=== PATIENT | female | born 1970 | race African-American/Black ===

== ENCOUNTER 2019-05-17 15:37 | Emergency (ER) | payer BC ==
[~2019-05-17] VITALS: Ht 167.6 cm; Wt 117.9 kg
[2019-05-17] MEDS ORDERED: NEURONTIN 300M300 M2 PO (15:51)
[2019-05-17] MEDS ORDERED: LIPITOR10 MG PO (15:51)
[2019-05-17] MEDS ORDERED: NORVASC10 MG PO (15:51)
[2019-05-17] MEDS ORDERED: OMEPRAZOLE40 MG PO (15:51)
[2019-05-17] MEDS ORDERED: METFORMIN HCL500 M3 PO (15:52)
[2019-05-17] MEDS ORDERED: PROAIR HFA8.5 GM INH (15:52)
[2019-05-17] MEDS ORDERED: ALLER-TEC D 5-1 EACH PO (15:53)
[2019-05-17] MEDS ORDERED: IBUPROFEN 800800 M1 PO (15:53)
[2019-05-17] MEDS ORDERED: ALLER-FLO15.8 ML NASAL (15:53)
[2019-05-17 16:31] LABS: ABSOLUTE BASOPHILS 0.1 thou/uL (0.0-0.2); ABSOLUTE EOSINOPHILS 0.2 thou/uL (0.0-0.7); ABSOLUTE MONOCYTES 0.8 thou/uL (0.0-1.2); ABSOLUTE NEUTROPHILS 6.1 thou/uL (1.6-8.1); BASOPHILS 1.1 %; EOSINOPHILS 1.8 %; HEMATOCRIT 41.6 % (37.0-47.0); HEMOGLOBIN 14.3 gm/dL (12.0-15.0); LYMPHOCYTES 21.6 %; MCH 29.6 pg (26.0-34.0); MCHC 34.3 g/dL (28.0-37.0); MCV 86.5 fL (80.0-100.0); MONOCYTES 8.6 %; MPV 7.8 fl. (7.2-11.1); NUCLEATED RBCS 0 /100WBC; PLATELET COUNT* 357 thou/uL (150-400); POLYS 66.9 %; RBC 4.81 mil/uL (4.20-5.00); RDW-CV 13.7 % (10.5-14.5); WBC 9.1 thou/uL (4.0-11.0)
[2019-05-17 16:43] LABS: CALCIUM 8.5 mg/dL (8.5-10.1); CREATININE 0.9 mg/dL (0.6-1.3); POTASSIUM 3.5 mmol/L (3.5-5.1)
[2019-05-17 16:48] LABS: ALBUMIN 3.5 g/dL (3.4-5.0); TOTAL BILIRUBIN 0.6 mg/dL (<0.1-1.0); TOTAL PROTEIN 7.3 g/dL (6.4-8.2)
[2019-05-17] MEDS ORDERED: NORCO 5-325 TA1 EAC1 PO (17:08)
[2019-05-17] MEDS ORDERED: PREDNISONE 20 M20 M1 PO (17:08)
[2019-05-17 17:22] VITALS: BP 140/69
[2019-05-17 17:41] LABS: ESR (SEDRATE) 5 mm/hr (0-30)
== END 2019-05-17 17:25 | disposition home or self-care (01) ==
LOC: M.ERS 15:37
PROVIDERS: Family Medicine
DX: R51 Headache (principal); I10 Essential (primary) hypertension; E78.00 Pure hypercholesterolemia, unspecified; J45.909 Unspecified asthma, uncomplicated; Z88.5 Allergy status to narcotic agent; Z90.710 Acquired absence of both cervix and uterus; Z88.2 Allergy status to sulfonamides; Z90.89 Acquired absence of other organs

== ENCOUNTER 2020-04-10 20:05 | Emergency (ER) | payer BC ==
[~2020-04-10] VITALS: Ht 167.6 cm; Wt 115.7 kg
[~2020-04-10 20:05] MED LIST: ALLER-FLO15.8 ML NASAL; ALLER-TEC D 5-1 EACH PO; IBUPROFEN 800800 M1 PO; LIPITOR10 MG PO; METFORMIN HCL500 M3 PO; NEURONTIN 300M300 M2 PO; NORCO 5-325 TA1 EAC1 PO; NORVASC10 MG PO; OMEPRAZOLE40 MG PO; PREDNISONE 20 M20 M1 PO; PROAIR HFA8.5 GM INH
[2020-04-10] MEDS ORDERED: IBUPROFEN 800800 M1 PO (21:32)
[2020-04-10] MEDS ORDERED: HYDROCODON-ACE1 EAC7 PO (21:32)
[2020-04-10 22:22] VITALS: BP 139/78
== END 2020-04-10 22:22 | disposition home or self-care (01) ==
LOC: M.ERS 20:05
DX: S82.831A Other fracture of upper and lower end of right fibula, initial encounter for closed fracture (principal); S82.51XA Displaced fracture of medial malleolus of right tibia, initial encounter for closed fracture; S93.402A Sprain of unspecified ligament of left ankle, initial encounter; I10 Essential (primary) hypertension; E78.5 Hyperlipidemia, unspecified; J45.909 Unspecified asthma, uncomplicated; Z90.710 Acquired absence of both cervix and uterus; Z90.89 Acquired absence of other organs; Z79.899 Other long term (current) drug therapy; Z88.2 Allergy status to sulfonamides; Z88.5 Allergy status to narcotic agent; W10.9XXA Fall (on) (from) unspecified stairs and steps, initial encounter; Y93.89 Activity, other specified; Y92.89 Other specified places as the place of occurrence of the external cause; Y99.8 Other external cause status